=== PATIENT | male | born 1990 | race Caucasian/White ===

== ENCOUNTER 2018-05-14 17:42 | Emergency (ER) | payer MEDICAID ==
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
[2018-05-14 19:31] VITALS: BP 115/64
== END 2018-05-14 19:36 | disposition home or self-care (01) ==
LOC: CED 17:42
PROC: 2W3EX1Z Immobilization of Right Hand using Splint (ICD-10-PCS; principal; 2018-05-14)
DX: S62.316A Displaced fracture of base of fifth metacarpal bone, right hand, initial encounter for closed fracture (principal); W22.8XXA Striking against or struck by other objects, initial encounter; Y93.89 Activity, other specified
CPT/HCPCS: 73130-PO; 99283-ER; A4565-ER

== ENCOUNTER → 2018-06-19 | Outpatient (CLI) | payer MEDICAID | LOC: BMCIMAGING 09:21 | PROVIDERS: ATTEND Orthopaedic Surgery | DX: S62.396D Other fracture of fifth metacarpal bone, right hand, subsequent encounter for fracture with routine healing (principal) ==